=== PATIENT | female | born 1950 | race Caucasian/White ===

== ENCOUNTER 2016-05-26 10:15 | Outpatient (RCR) | payer SELFPAY ==
[~2016-05-26] VITALS: Ht 165.1 cm; Wt 127.0 kg
== END 2016-08-24 | disposition still patient (30) ==
LOC: DSME 10:15
PROVIDERS: ATTEND Nurse Practitioner Family
DX: R73.03 Prediabetes (principal); I10 Essential (primary) hypertension; E66.9 Obesity, unspecified

== ENCOUNTER 2017-12-16 16:00 | Outpatient (RCR) | payer MEDICARE, OTHER ==
[2017-12-19] MEDS ORDERED: DILT90TA PO (15:37)
[2017-12-19] MEDS ORDERED: POTA10TA10 PO (15:37)
[2017-12-19] MEDS ORDERED: SERT100T8 PO (15:37)
[2017-12-19] MEDS ORDERED: SERT50TA9 PO (15:37)
[2017-12-19] MEDS ORDERED: FURO40TA4 PO (15:37)
[2017-12-19] MEDS ORDERED: PHEN37.582 PO (15:37)
[2017-12-20] MEDS ORDERED: HYDR-753 PO (10:16)
== END 2017-12-19 09:11 | disposition home or self-care (01) ==
PROVIDERS: ATTEND Physician Assistant
DX: M17.0 Bilateral primary osteoarthritis of knee (principal)

== ENCOUNTER → 2017-12-19 | Outpatient (CLI) | payer MEDICARE, OTHER ==
[~2017-12-19] VITALS: Ht 165.1 cm; Wt 127.0 kg
[~2017-12-19] MED LIST: DILT90TA PO; FURO40TA4 PO; HYDR-753 PO; PHEN37.582 PO; POTA10TA10 PO; SERT100T8 PO; SERT50TA9 PO
== END ==
LOC: PREOP 14:23
PROVIDERS: ATTEND Orthopaedic Surgery
DX: Z01.818 Encounter for other preprocedural examination (principal)

== ENCOUNTER 2017-12-20 09:29 | Day surgery (SDC) | payer MEDICARE, OTHER ==
[~2017-12-20] VITALS: Ht 165.1 cm; Wt 127.0 kg
[~2017-12-20 09:29] MED LIST changes: -HYDR-753 PO
--- OUTSIDE RECORDS SUMMARY | 2017-12-20 09:32 | XMS REPORT | Continuity of Care Document ---
Demographics Preferred Language Unknown Marital Status Unknown Christian Affiliation Unknown Race Unknown Ethnic Group Unknown Author Author [facility] Address Unknown Phone Unavailable Allergies Active Description Code Type Severity Reaction Onset Reported/Identified Relationship to Patient Clinical Status Yes NO KNOWN DRUG ALLERGIES UNKNOWN NO KNOWN DRUG ALLERG Yes No Known Drug Allergies [id number] Drug Allergy Unknown N/A 12/19/2017 Medications Medication Packaging Start Date Stop Date Route Dosage Sig ACETAMIN 300MG/CODIENE 30MG TAB (TYLENOL #3) MG 12/17/2017 12/17/2017 PRN ONCE Problems Date Dx Coded Attending Type Code Diagnosis Diagnosed By 11/13/2012 V05.8 ZOSTAVAX DX 2015 YURI GARCIA APRN Ot N64.4 05/26/2016 YURI GARCIA APRN Ot N64.4 MASTODYNIA 05/31/2016 YURI GARCIA APRN Ot E66.9 OBESITY, UNSPECIFIED 05/31/2016 YURI GARCIA APRN Ot I10 ESSENTIAL (PRIMARY) HYPERTENSION 05/31/2016 YURI GARCIA APRN Ot R73.03 PREDIABETES 06/24/2016 YURI GARCIA APRN Ot E66.9 OBESITY, UNSPECIFIED 06/24/2016 YURI GARCIA APRN Ot I10 ESSENTIAL (PRIMARY) HYPERTENSION 06/24/2016 YURI GARCIA REGISTERED LAND SURVEYOR Ot R73.03 PREDIABETES 08/24/2016 YURI GARCIA APRN Ot E66.9 OBESITY, UNSPECIFIED 08/24/2016 YURI GARCIA REGISTERED LAND SURVEYOR Ot I10 ESSENTIAL (PRIMARY) HYPERTENSION 08/24/2016 YURI GARCIA REGISTERED LAND SURVEYOR Ot R73.03 PREDIABETES 08/25/2016 YURI GARCIA APRN Ot E66.9 OBESITY, UNSPECIFIED 08/25/2016 YURI GARCIA REGISTERED LAND SURVEYOR Ot I10 ESSENTIAL (PRIMARY) HYPERTENSION 08/25/2016 YURI GARCIA REGISTERED LAND SURVEYOR Ot R73.03 PREDIABETES 11/10/2017 YURI GARCIA REGISTERED LAND SURVEYOR Ot N64.4 MASTODYNIA 11/10/2017 YURI GARCIA REGISTERED LAND SURVEYOR Ot E66.9 OBESITY, UNSPECIFIED 11/10/2017 GERMAN GARCIAJOSÉ MIGUEL Vasquez REGISTERED LAND SURVEYOR Ot I10 ESSENTIAL (PRIMARY) HYPERTENSION 11/10/2017 GERMAN GARCIAOMEGA HURTADO Ot R73.03 PREDIABETES 11/16/2017 GERMAN GARCIAOMEGA WALKERN Ot N64.4 MASTODYNIA 11/16/2017 GERMAN GARCIAOMEGA HURTADO Ot E66.9 OBESITY, UNSPECIFIED 11/16/2017 GERMAN GARCIAOMEGA HURTADO Ot I10 ESSENTIAL (PRIMARY) HYPERTENSION 11/16/2017 GERMAN GARCIAOMEGA WALKERN Ot R73.03 PREDIABETES 11/17/2017 BRENDA SETHI Ot M17.0 BILATERAL PRIMARY OSTEOARTHRITIS OF KNEE 12/05/2017 GERMAN GARCIAOMEGA HURTADO Ot N64.4 MASTODYNIA 12/05/2017 GARCIA GERMANOMEGA HURTADO Ot E66.9 OBESITY, UNSPECIFIED 12/05/2017 GERMAN GARCIAOMEGA HURTADO Ot I10 ESSENTIAL (PRIMARY) HYPERTENSION 12/05/2017 GARCIA GERMANOMEGA HURTADO Ot R73.03 PREDIABETES 12/05/2017 BRENDA SETHI Ot M17.0 BILATERAL PRIMARY OSTEOARTHRITIS OF KNEE 12/19/2017 GERMAN GARCIAOMEGA HURTADO Ot E66.9 OBESITY, UNSPECIFIED 12/19/2017 GERMAN GARCIAOMEGA HURTADO Ot I10 ESSENTIAL (PRIMARY) HYPERTENSION 12/19/2017 GARCIA GERMANOMEGA HURTADO Ot R73.03 PREDIABETES Procedures There is no data. Results There is no data. Encounters ACCT No. Visit Date/Time Discharge Status Pt. Type Provider Facility Loc./Unit Complaint [id number] 11/13/2012 10:06:00 11/13/2012 23:59:59 CLS Outpatient [id number] 12/16/2017 16:00:00 12/16/2017 23:59:59 CLS Outpatient BRENDA SETHI [facility] B KNEE PAIN GRADE III OA [id number] 08/25/2016 10:00:00 08/25/2016 23:59:59 CLS Preadmit YURI GARCIA APRN [facility] DSME PRE-DIABETES [id number] 05/26/2016 10:15:00 08/24/2016 00:01:00 DIS Outpatient YURI GARCIA APRN [facility] DSME PRE-DIABETES [id number] 06/24/2015 08:27:00 06/24/2015 23:59:59 CLS Outpatient YURI GARCIA REGISTERED LAND SURVEYOR [facility] RAD BREAST PAIN, DISCHARGE FROM [facility] [id number] 12/20/2017 11:00:00 PEN Preadmit JODY HOWARD DO [facility] SDC COMMINUTED INTRA-ARTICULAR RIGHT DISTAL RADIAL FX [id number] 12/19/2017 14:23:00 ACT Outpatient JODY HOWARD DO Anisha [facility] PREOP RIGHT DISTAL RADIAL FX [id number] 12/17/2017 21:40:00 12/17/2017 21:40:00 CAN Outpatient Yesenia Melendrez [id number] 12/17/2017 21:40:00 12/17/2017 21:40:00 CAN Outpatient Tomas Quarles [id number] 12/17/2017 21:40:00 12/17/2017 21:40:00 CAN Outpatient Tomas Quarles [id number] 12/17/2017 21:40:00 12/17/2017 21:40:00 CAN Outpatient Tomas Quarles [id number] 12/17/2017 21:40:00 12/17/2017 21:40:00 CAN Outpatient Tomas Quarles [id number] 10/16/2017 00:00:00 10/16/2017 23:59:00 DIS Outpatient DUANE CHAND [id number] 10/12/2017 14:19:00 10/12/2017 23:59:00 DIS Outpatient DUANE CHAND [id number] 12/17/2017 22:36:43 Document Registration
[2017-12-20] MEDS ORDERED: BUPIVACAINE 0.5% 30 ML (SENSORCAINE) VIAL ONE (09:34)
[2017-12-20] MEDS ORDERED: NEO/POLY/BAC (NEOSPORIN) OINT 15 GM TUBE ONE (09:34)
[2017-12-20 09:45] VITALS: BP 146/97
[2017-12-20] MEDS ORDERED: MIDAZOLAM 2 MG/2 ML (VERSED) VIAL ONE (09:45)
[2017-12-20] MEDS ORDERED: fentaNYL INJECTION 100 MCG/2 ML AMP ONE ×2 (09:45→12:18)
--- NOTE | 2017-12-20 09:59 | Progress Note-Pre Operative ---
Pre-Operative Progress Note H&P Reviewed The H&P was reviewed, patient examined and no changes noted. Date Seen by Provider: December 20, 2017 Time Seen by Provider: 09:55 Date H&P Reviewed: December 20, 2017 Time H&P Reviewed: 09:55 Pre-Operative Diagnosis: Comminuted intraarticullar right distal radius fracture JODY HOWARD DO December 20, 2017 9:58 am
--- NOTE | 2017-12-20 10:13 | Discharge Inst-Simple/Standard ---
Discharge Inst-Standard Discharge Medications New, Converted or Re-Newed RX: RX on Chart Patient Instructions/Follow Up Plan of Care/Instructions/FU: f/u with Dr. Howard in 7-10 days ice 20-30 minutes every 2 hours as needed Elevation above heart level x 48 hours may do gentle elbow ROM leave splint intact until seen in office do not get splint wet hydrocodone for pain may take OTC ibuprofen or aleve as well Activity as Tolerated: No Discharge Diet: No Restrictions Return to The Hospital For: concerns. Call Dr. Howard's office unless emergency JODY HOWARD DO December 20, 2017 10:13 am
[2017-12-20] MEDS ORDERED: HYDR-753 PO (10:16)
[2017-12-20] MEDS ORDERED: LACTATED RINGERS 1,000 ML IV ONE (10:45)
[2017-12-20] MEDS ORDERED: ceFAZolin 1,000 MG (ANCEF) VIAL ONE (10:46)
[2017-12-20] MEDS ORDERED: LIDOCAINE PF 2% 5 ML (XYLOCAINE) VIAL ONE (10:57)
[2017-12-20] MEDS ORDERED: ONDANSETRON 4 MG/2 ML (SDV) Z0FRAN ONE (10:57)
[2017-12-20] MEDS ORDERED: SEVOFLURANE (ULTANE) 15 ML INHAL SOLN ONE (10:57)
[2017-12-20] MEDS ORDERED: GLYCOPYRROLATE 0.2 MG/ML (ROBINUL) 2 ML VIAL ONE (10:57)
[2017-12-20] MEDS ORDERED: proPOfol 200 MG/20 ML (DIPRIVAN) VIAL IV ONE (10:57)
--- NOTE | 2017-12-20 12:25 | Progress Note-Post Operative ---
Post-Operative Progess Note Surgeon (s)/Music Journalist (s) Surgeon JODY HOWARD DO Music Journalist: Oscar Upton DIRECTOR INDUSTRIAL NURSINGCorina Pre-Operative Diagnosis Comminuted intraarticullar right distal radius fracture Post-Operative Diagnosis same Procedure & Operative Findings Date of Procedure 12/20/17 Procedure Performed/Findings Open reduction internal fixation comminuted displaced intraarticular right distal radius fracture Anesthesia Type general Estimated Blood Loss Estimated blood loss (mL): min Specimens/Packing Specimens Removed none JODY HOWARD DO December 20, 2017 12:25 pm
[2017-12-20] MEDS ORDERED: LACTATED RINGERS 1,000 ML IV PRN (12:43)
[2017-12-20] MEDS ORDERED: ONDANSETRON 4 MG/2 ML (SDV) Z0FRAN IVP PRN (13:00)
[2017-12-20] MEDS ORDERED: morphine INJ 10 MG/ML 1ML (SYR OR VIAL) IVP PRN (13:00)
[2017-12-20] MEDS ORDERED: LABETALOL HCL 20 MG/4 ML VIAL ONE (13:05)
--- NOTE | 2017-12-20 13:13 | Anesthesia-General Post-Op ---
General Patient Condition Mental Status/LOC: Same as Preop Cardiovascular: Satisfactory Nausea/Vomiting: Absent Respiratory: Satisfactory Pain: Controlled Complications: Absent Post Op Complications Complications None Follow Up Care/Instructions Patient Instructions None needed. Anesthesia/Patient Condition Patient Condition Patient is doing well, no complaints, stable vital signs, no apparent adverse anesthesia problems. No complications reported per nursing. VIRGEN VALERIO CRNA December 20, 2017 13:13
[2017-12-20] MEDS ORDERED: LABETALOL HCL 20 MG/4 ML VIAL IV ONE (13:15)
[2017-12-20 13:40] VITALS: BP 171/106
[2017-12-20 14:10] VITALS: BP 171/101
[2017-12-20 14:40] VITALS: BP 157/86
[2017-12-20] MEDS ORDERED: HYDROcodone/APAP 10 MG/325 MG (LORTAB) TAB PO ONE ×2 (14:40→14:45)
[2017-12-20 15:00] VITALS: BP 157/86
--- NOTE | 2017-12-20 18:12 | Diagnostic Imaging Report ---
INDICATION: Right radius fracture. COMPARISON: None. FINDINGS: Multiple intraoperative image intensifier views of the right wrist were obtained during ORIF. Images provided show placement of orthopedic sideplate and screws along the distal margins of the right radius. Fracture lines are noted. Please note, interpreting radiologist was not present during the procedure. IMPRESSION: 1. Fluoroscopic guidance provided during right wrist ORIF as described above. Dictated by: Dictated on workstation # [id number]
--- NOTE | 2017-12-21 06:48 | OPERATIVE REPORT ---
DATE OF SERVICE: 12/20/2017 PREOPERATIVE DIAGNOSIS: Comminuted displaced intra-articular right distal radius fracture. POSTOPERATIVE DIAGNOSIS: Comminuted displaced intra-articular right distal radius fracture. PROCEDURE PERFORMED: Open reduction internal fixation comminuted intra-articular displaced right distal radius fracture. SURGEON: Jody Howard DO. PARTS IDENTIFICATION TECHNICIAN: DEEPTHI Swain. SURGICAL EXPERIMENTAL BOX TESTER DUTIES: Oscar Upton, medical clerical assistant, was utilized throughout the entire procedure for retraction, placement of metallic implants, wound closure, splint application and the patient transfer. ANESTHESIA: General. COMPLICATIONS: None. ESTIMATED BLOOD LOSS: Minimal. INDICATIONS AND FINDINGS: The patient is a 67-year-old female who slipped and fell and caught herself with her outstretched right dominant upper extremity. She noted immediate pain and deformity. She was evaluated at [facility]. X-rays were obtained and fracture was identified and she was splinted. The patient was seen in followup. The patient demonstrated a displaced 3-part comminuted intra-articular fracture of the distal right radius. The patient was taken to surgery where an open reduction internal fixation was performed with an anatomic reduction of the fracture obtained, stabilization of the fracture was performed with the distal radius plate provided through ArthMediaScrape. PROCEDURE IN DETAIL: The patient was transferred to the operating room and placed supine upon the operating table and a general inhalation anesthetic was administered. A well-padded pneumatic tourniquet was placed about the upper aspect of the right arm. A ChloraPrep and sterile drape of the right upper extremity was performed. The right arm was elevated, exsanguinated and the tourniquet was inflated to 300 mmHg pressure. A longitudinal incision was made over the volar radial aspect of the right wrist, carried slightly obliquely at the proximal wrist crease. The incision was deepened. There was a hematoma present in the fracture site. The flexor carpi radialis tendon was identified. The flexor sheath was opened and the FCR and the radial artery were retracted ulnarly. There was disruption of the pronator quadratus. The rest of the pronator quadratus was released in the radial aspect of the distal radius. The brachioradialis was identified and this was divided. Fracture hematoma was irrigated and curetted and the fracture was reduced. Under fluoroscopic guidance, a 0.054 smooth Arpita wire was used to stabilize the radial styloid fracture. A volar plate was then obtained and this was positioned and provisionally secured to the radius and verified fluoroscopically. Additional guidewires were used to hold the plate position and again the position was verified fluoroscopically. Through the drill guide of the Arthrex plate multiple locking screws were placed in the distal fracture fragment, 2 screws placed in the radial styloid, a member of the screws placed through the distal radius including screws in the ulnar fracture. The plate was then secured with two nonlocking and one locking screw to the proximal radius. The fracture reduction and plate and screw fixation was verified fluoroscopically and then anatomic reduction obtained. The tourniquet was released. Wound was irrigated extensively with normal saline solution. Pulsation of the radial artery was identified with no evidence of bleeding. Subcutaneous tissues were closed with 2-0 Vicryl suture. The skin was closed with multiple interrupted mattress sutures of 3-0 nylon with a running suture as well and Adaptic Neosporin bulky dressing was placed about the right wrist with a dorsal fiberglass short-arm splint incorporated within the dressing. The patient was awakened and was transported to postop recovery with anesthesia personnel present in satisfactory condition. Job ID: [id number] DocumentID: [id number] Dictated Date: 12/20/2017 23:22:56 Plant Guard Date: 12/21/2017 06:47:24 Dictated By: JODY HOWARD DO
== END 2017-12-20 15:22 | disposition home or self-care (01) ==
LOC: SDC 09:29
PROVIDERS: ATTEND Orthopaedic Surgery
DX: S52.571A Other intraarticular fracture of lower end of right radius, initial encounter for closed fracture (principal); I10 Essential (primary) hypertension; E11.9 Type 2 diabetes mellitus without complications; Z87.891 Personal history of nicotine dependence; Z79.899 Other long term (current) drug therapy; W01.0XXA Fall on same level from slipping, tripping and stumbling without subsequent striking against object, initial encounter
CPT/HCPCS: 82962; 87081

== ENCOUNTER → 2018-05-10 | Outpatient (CLI) | payer MEDICARE, OTHER ==
[~2018-05-10] MED LIST changes: +HYDR-4196 PO
--- NOTE | 2018-05-10 15:01 | Diagnostic Imaging Report ---
PROCEDURE: CT left upper extremity without contrast. TECHNIQUE: Multiple contiguous axial images were obtained through the left upper extremity without the use of intravenous contrast. INDICATION: Distal radius fracture. Overall quality is limited due to patient positioning. There is a comminuted fracture of the distal radius with intra-articular extension. Fracture also involves the radial styloid. There is slight radial displacement of the dominant distal radial fracture fragment including the styloid. There is also a fracture of the ulnar styloid. Carpal bones appear to be intact. Metacarpals are intact. There is moderate edema throughout the subcutaneous soft tissues. IMPRESSION: Intra-articular distal radius fracture as well as ulnar styloid fracture. Dictated by: Dictated on workstation # [id number]
== END ==
LOC: RAD 13:47
PROVIDERS: ATTEND Orthopaedic Surgery
DX: S52.572A Other intraarticular fracture of lower end of left radius, initial encounter for closed fracture (principal); S52.612A Displaced fracture of left ulna styloid process, initial encounter for closed fracture
CPT/HCPCS: 73200

== ENCOUNTER 2022-04-19 05:43 | Outpatient (CLI) | payer MEDICARE, OTHER ==
[~2022-04-19] VITALS: Ht 165.1 cm; Wt 136.4 kg
[~2022-04-19 05:43] MED LIST changes: +SERT-413 PO; +SERT-414 PO; -SERT100T8 PO; -SERT50TA9 PO
[2022-04-19] MEDS ORDERED: SPIR25TA PO (16:53)
[2022-04-19] MEDS ORDERED: ZINC50TA11 PO (16:53)
[2022-04-19] MEDS ORDERED: CHOL1LIQ MC (16:53)
[2022-04-19] MEDS ORDERED: DILT120T3 PO (16:53)
[2022-04-19] MEDS ORDERED: ERGO400C PO (16:53)
[2022-04-19] MEDS ORDERED: MULT-1136 PO (16:53)
== END 2022-04-19 16:53 | disposition home or self-care (01) ==
LOC: PREOP 05:43
PROVIDERS: ATTEND Specialist
DX: Z01.818 Encounter for other preprocedural examination (principal)

== ENCOUNTER 2022-04-23 11:27 | Day surgery (SDC) | payer MEDICARE, OTHER ==
[~2022-04-23] VITALS: Ht 165.1 cm; Wt 136.4 kg
[~2022-04-23 11:27] MED LIST changes: +CHOL1LIQ MC; +DILT120T3 PO; +ERGO400C PO; +MULT-1136 PO; +SPIR25TA PO; +ZINC50TA11 PO
[2022-04-23 11:30] VITALS: BP 145/89
[2022-04-23] MEDS ORDERED: POVIDONE (BETADINE) OPHTH SOLN 5% 30 ML OP ONE (12:00)
[2022-04-23] MEDS ORDERED: TIMOLOL MALEATE 0.5% 5 ML (TIMOPTIC) BTL OU PRN (12:00)
[2022-04-23] MEDS ORDERED: acetaZOLAMIDE ER 500 MG CAP (DIAMOX SEQUELS) PO ONE (12:00)
[2022-04-23] MEDS ORDERED: MOXIFLOXACIN OPHTH SOLN 5 MG/ML 0.3 ML SYRINGE OP ONE (12:00)
[2022-04-23] MEDS: TETRACAINE 0.5% OPHTH SOLN 4 ML BTL (SINGLE DOSE ONLY) OU PRN ×4 (12:09→12:25)
[2022-04-23] MEDS: PHENYLEPHRINE 10% OPHTH (NEO-SYN) 5 ML BTL OU SCH ×3 (12:15→12:25)
[2022-04-23] MEDS: TROPICAMIDE 1% OPH SOLN (MYDRIACYL) 15 ML BTL OP SCH ×3 (12:15→12:25)
[2022-04-23] MEDS ORDERED: MIDAZOLAM 2 MG/2 ML (VERSED) VIAL ONE ×2 (12:54→13:04)
--- NOTE | 2022-04-23 13:02 | Ophthalmologist Pre-Op Note ---
Pre-Operative Progress Note H&P Reviewed The H&P was reviewed, patient examined and no changes noted. Date H&P Reviewed: Apr 23, 2022 Time H&P Reviewed: 13:01 Pre-Op Dx Cataract, Right Eye GEMINI CAMERON MD Apr 23, 2022 13:01
--- NOTE | 2022-04-23 13:22 | Ophthalmology Operative Report ---
Cataract removal/placement IOL PREOPERATIVE DIAGNOSIS: Cataract Right Eye POSTOPERATIVE DIAGNOSIS: Cataract Right Eye PROCEDURE: Cataract removal and placement of posterior chamber implant, right eye SURGEON: Zurdo Cameron ANESTHESIA: Topical with sedation COMPLICATIONS: None ESTIMATED BLOOD LOSS: Minimal DESCRIPTION OF PROCEDURE: After proper informed consent was obtained, the patient, a 71 female, was taken to the Operating Room and the right eye was anesthetized with tetracaine. The right eye was then prepped and draped in the usual manner. A wire lid speculum was placed. A paracentesis was made at the left hand position. Preservative free lidocaine was injected into the anterior chamber followed by viscoelastic. A clear corneal incision was made in the temporal position. A capsulorrhexis was preformed and the central nuclear and cortical material were removed. The posterior capsule was polished and Misha 12.5 AU00T0 IOL was placed into the capsular bag. The residual viscoelastic was aspirated and balanced saline solution was injected into the anterior chamber. Moxifloxacin was injected into the anterior chamber. The wound was checked and found to be water tight. The patient tolerated the procedure well without complications. ZURDO CAMERON MD Apr 23, 2022 13:22
[2022-04-23 13:29] VITALS: BP 141/79
--- NOTE | 2022-04-23 14:44 | Anesthesia-General Post-Op ---
MAC Patient Condition Mental Status/LOC: Same as Preop Cardiovascular: Satisfactory Nausea/Vomiting: Absent Respiratory: Satisfactory Pain: Controlled Complications: Absent Post Op Complications Complications None Follow Up Care/Instructions Patient Instructions None needed. Anesthesiology Discharge Order Discharge Order Patient is doing well, no complaints, stable vital signs, no apparent adverse anesthesia problems. No complications reported per nursing. KILLIAN LOPES CRNA Apr 23, 2022 14:44
== END 2022-04-23 13:31 | disposition home or self-care (01) ==
LOC: SDC 11:27
PROVIDERS: ATTEND Specialist
DX: H25.9 Unspecified age-related cataract (principal); E66.01 Morbid (severe) obesity due to excess calories; Z68.43 Body mass index [BMI] 50.0-59.9, adult
CPT/HCPCS: 66984; V2632

== ENCOUNTER 2022-05-07 05:40 | Outpatient (CLI) | payer MEDICARE, OTHER ==
[~2022-05-07] VITALS: Ht 165.1 cm; Wt 136.4 kg
== END 2022-05-07 16:36 | disposition home or self-care (01) ==
LOC: PREOP 05:40
PROVIDERS: ATTEND Specialist
DX: Z01.818 Encounter for other preprocedural examination (principal)

== ENCOUNTER 2022-05-14 10:37 | Day surgery (SDC) | payer MEDICARE, OTHER ==
[~2022-05-14] VITALS: Ht 165.1 cm; Wt 136.4 kg
[2022-05-14] MEDS ORDERED: TIMOLOL MALEATE 0.5% 5 ML (TIMOPTIC) BTL OU PRN (10:45)
[2022-05-14] MEDS ORDERED: POVIDONE (BETADINE) OPHTH SOLN 5% 30 ML OP ONE (10:45)
[2022-05-14] MEDS ORDERED: MOXIFLOXACIN OPHTH SOLN 5 MG/ML 0.3 ML SYRINGE OP ONE (10:45)
[2022-05-14] MEDS: TETRACAINE 0.5% OPHTH SOLN 4 ML BTL (SINGLE DOSE ONLY) OU PRN ×4 (10:47→11:00)
[2022-05-14] MEDS: PHENYLEPHRINE 10% OPHTH (NEO-SYN) 5 ML BTL OU SCH ×3 (10:53→11:00)
[2022-05-14] MEDS: TROPICAMIDE 1% OPH SOLN (MYDRIACYL) 15 ML BTL OP SCH ×3 (10:54→11:00)
[2022-05-14 11:02] VITALS: BP 148/68
[2022-05-14] MEDS ORDERED: MIDAZOLAM 2 MG/2 ML (VERSED) VIAL ONE (11:06)
--- NOTE | 2022-05-14 11:50 | Ophthalmologist Pre-Op Note ---
Pre-Operative Progress Note H&P Reviewed The H&P was reviewed, patient examined and no changes noted. Date H&P Reviewed: May 14, 2022 Time H&P Reviewed: 11:50 Pre-Op Dx Cataract, Left Eye GEMINI CAMERON MD May 14, 2022 11:50
--- NOTE | 2022-05-14 12:12 | Ophthalmology Operative Report ---
Cataract removal/placement IOL PREOPERATIVE DIAGNOSIS: Cataract Left Eye POSTOPERATIVE DIAGNOSIS: Cataract Left Eye PROCEDURE: Cataract removal and placement of posterior chamber implant, left eye SURGEON: Zurdo Cameron ANESTHESIA: Topical with sedation COMPLICATIONS: None ESTIMATED BLOOD LOSS: Minimal DESCRIPTION OF PROCEDURE: After proper informed consent was obtained, the patient, a 71 female, was taken to the Operating Room and the left eye was anesthetized with tetracaine. The left eye was then prepped and draped in the usual manner. A wire lid speculum was placed. A paracentesis was made at the left hand position. Preservative free lidocaine was injected into the anterior chamber followed by viscoelastic. A clear corneal incision was made in the temporal position. A capsulorrhexis was preformed and the central nuclear and cortical material were removed. The posterior capsule was polished and an Misha 15.0 AU00T0 was placed into the capsular bag. The residual viscoelastic was aspirated and balanced saline solution was injected into the anterior chamber. Moxifloxacin was injected into the anterior chamber. The wound was checked and found to be water tight. The patient tolerated the procedure well without complications. ZURDO CAMERON MD May 14, 2022 12:12
[2022-05-14 12:20] VITALS: BP 152/65
[2022-05-14] MEDS ORDERED: acetaZOLAMIDE ER 500 MG CAP (DIAMOX SEQUELS) PO ONE (12:30)
--- NOTE | 2022-05-14 14:05 | Anesthesia-General Post-Op ---
MAC Patient Condition Mental Status/LOC: Same as Preop Cardiovascular: Satisfactory Nausea/Vomiting: Absent Respiratory: Satisfactory Pain: Controlled Complications: Absent Post Op Complications Complications None Follow Up Care/Instructions Patient Instructions None needed. Anesthesiology Discharge Order Discharge Order Patient is doing well, no complaints, stable vital signs, no apparent adverse anesthesia problems. No complications reported per nursing. LENORE KELLY CRNA May 14, 2022 14:05
== END 2022-05-14 12:22 | disposition home or self-care (01) ==
LOC: SDC 10:37
PROVIDERS: ATTEND Specialist
DX: H25.9 Unspecified age-related cataract (principal); E66.01 Morbid (severe) obesity due to excess calories; Z68.43 Body mass index [BMI] 50.0-59.9, adult
CPT/HCPCS: 66984; V2632

== ENCOUNTER 2022-12-08 05:42 | Outpatient (CLI) | payer MEDICARE, OTHER ==
[~2022-12-08] VITALS: Ht 165.1 cm; Wt 154.2 kg
[2022-12-09] MEDS ORDERED: TEMA15CA PO (08:15)
[2022-12-09] MEDS ORDERED: POTA10CA44 PO (08:15)
== END 2022-12-09 08:17 | disposition home or self-care (01) ==
LOC: PREOP 05:42
PROVIDERS: ATTEND Surgery
DX: Z01.818 Encounter for other preprocedural examination (principal)

== ENCOUNTER 2022-12-16 11:19 | Day surgery (SDC) | payer MEDICARE, OTHER ==
[~2022-12-16] VITALS: Ht 165 cm; Wt 154.2 kg
[~2022-12-16 11:19] MED LIST changes: +POTA10CA44 PO; +TEMA15CA PO
[2022-12-16] MEDS ORDERED: LACTATED RINGERS 1,000 ML IV STA (11:33)
[2022-12-16] MEDS ORDERED: HURRICAINE EXT TUBE (BENZOCAINE) ONE (11:36)
[2022-12-16] MEDS ORDERED: LACTATED RINGERS 1,000 ML IV ONE (11:36)
[2022-12-16 11:42] VITALS: BP 171/95
[2022-12-16] MEDS ORDERED: HURRICAINE EXT TUBE (BENZOCAINE) XX PRN (11:45)
--- NOTE | 2022-12-16 11:53 | Progress Note-Pre Operative ---
Pre-Operative Progress Note Date H&P Reviewed: December 16, 2022 Time H&P Reviewed: 11:51 History & Physical: H&P Reviewed, Patient Examed, No changes noted Pre-Operative Diagnosis: dysphagia BRIAN BAKER DO December 16, 2022 11:53
[2022-12-16] MEDS ORDERED: proPOfol 200 MG/20 ML (DIPRIVAN) VIAL IV ONE (12:25)
[2022-12-16] MEDS ORDERED: KETAMINE 50 MG/5 ML SYRINGE ONE (12:26)
[2022-12-16] MEDS ORDERED: MIDAZOLAM 2 MG/2 ML (VERSED) VIAL ONE (12:26)
[2022-12-16] MEDS ORDERED: PROPOFOL INJECTION 50 ML IV ONE (12:37)
[2022-12-16 12:40] VITALS: BP 205/102
--- NOTE | 2022-12-16 12:41 | Progress Note-Post Operative ---
Post-Operative Progess Note Surgeon (s)/Lehr Attendant (s) Surgeon BRIAN BAKER DO Lehr Attendant: na Pre-Operative Diagnosis dysphagia Post-Operative Diagnosis Slight Gastritis Procedure & Operative Findings Date of Procedure 12/16/22 Procedure Performed/Findings EGD with biopsies Anesthesia Type per DISBURSING OFFICER Estimated Blood Loss Estimated blood loss (mL): none Specimens/Packing Specimens Removed GE Junction, Antrum BRIAN BAKER DO December 16, 2022 12:41
[2022-12-16] MEDS ORDERED: PANT40TA2 PO (12:42)
[2022-12-16 12:45] VITALS: BP 160/76
--- NOTE | 2022-12-16 12:47 | Anesthesia-General Post-Op ---
MAC Patient Condition Mental Status/LOC: Same as Preop Cardiovascular: Satisfactory Nausea/Vomiting: Absent Respiratory: Satisfactory Pain: Controlled Complications: Absent Post Op Complications Complications None Follow Up Care/Instructions Patient Instructions None needed. Anesthesiology Discharge Order Discharge Order Patient is doing well, no complaints, stable vital signs, no apparent adverse anesthesia problems. No complications reported per nursing. LENORE KELLY CRNA December 16, 2022 12:47
[2022-12-16 12:50] VITALS: BP 146/72
[2022-12-16 13:20] VITALS: BP 146/72
--- NOTE | 2022-12-16 21:55 | OPERATIVE REPORT ---
DATE OF SERVICE: 12/16/2022 PREOPERATIVE DIAGNOSIS: Dysphagia. POSTOPERATIVE DIAGNOSIS: Slight gastritis. PROCEDURE: EGD with biopsy. SURGEON: Brian Vasquez DO ANESTHESIA: Per NUCLEAR ENGINEERING TECHNICIAN. ESTIMATED BLOOD LOSS: None. COMPLICATIONS: None. INDICATIONS: The patient is a 72-year-old female who has been having dysphagia symptoms. She understands risks and benefits of procedure and wished to proceed. Consent was signed in chart. DESCRIPTION OF PROCEDURE: The patient was taken to endoscopy suite, placed in the left lateral recumbent position. Timeout was performed. Scope was inserted in the mouth, down the esophagus, stomach and the duodenum without difficulty. No polyps, masses or ulcerations in the duodenum. Scope was slowly retracted back to the stomach where it was further insufflated. Slight gastritis appearance, biopsy of the antrum were obtained. Scope was retroflexed noting no other pathology. Scope was returned to its normal position, slowly withdrawn to distal esophagus. Biopsy of GE junction was obtained. Scope was slowly retracted back until completely removed, noting no other pathology. The patient tolerated the procedure well, no complications, taken to recovery room in stable condition. RECOMMENDATIONS: The patient will follow up in the office in 2 weeks to discuss pathology results. If continues to have dysphagia symptoms, would also consider barium swallow. We will also start her on Protonix 40 mg daily. I will see how her symptoms are doing. CC: Dr. Hernandez -- requested, unable to deliver. Job ID: [id number] DocumentID: [id number] Dictated Date: 12/16/2022 12:42:04 Track Laying Supervisor Date: 12/16/2022 21:53:00 Dictated By: BRIAN VASQUEZ DO
== END 2022-12-16 13:30 | disposition home or self-care (01) ==
LOC: ENDO 11:19
PROVIDERS: ATTEND Surgery
DX: K29.70 Gastritis, unspecified, without bleeding (principal); E66.01 Morbid (severe) obesity due to excess calories; Z68.43 Body mass index [BMI] 50.0-59.9, adult; Z28.310 Unvaccinated for COVID-19